=== PATIENT | female | born 1960 | race Caucasian/White ===

== ENCOUNTER 2021-04-28 17:42 | Emergency (ER) | payer MEDICARE, MEDICAID, SELFPAY ==
[2021-04-28 17:56] VITALS: BP 125/63; PULSE 73; RESP 17; TEMP 36.3; O2SAT 98; BMI 26.6
--- NOTE | 2021-04-28 18:53 | ECG_ITS ---
[facility] Test Date: 2021-04-28 Pat Name: Milagros Wells Department: Room: Gender: Female Division Manager: : 1960 Requested By: Albert Valdez Order Number: [id number] Samir MD: Evie Babin M.D. Measurements Intervals [place] Rate: 64 P: 29 MI: 218 QRS: 33 QRSD: 82 T: 58 QT: 388 QTc: 401 Interpretive Statements SINUS RHYTHM WITH FIRST DEGREE AV BLOCK No previous ECG available for comparison Electronically Signed On 04-29-2021 20:01:50 BOWLING ALLEY REFINISHER by Evie Babin M.D. [id number]
--- NOTE | 2021-04-28 18:53 | ED_ITS ---
HPI - Chest Pain General: Chief Complaint: Chest Pain Stated Complaint: CHEST PAIN Time Seen by Provider: 04/28/21 18:13 History of Present Illness: HPI narrative: 60-year-old female residential facility patient presenting with chest discomfort. She states that it started earlier in the afternoon while watching TV on the couch. She denies significant shortness of breath, cough, fever or leg swelling. She notes the pain comes and goes to some degree. She has diabetes. She has no other cardiac history. MD complaint: chest pain Pertinent past history: other Onset (ago): hour(s) Timing of current episode: episodic Onset: during rest Pain location: substernal Pain radiation: none Quality: aching Relieving factors: nothing Exacerbating factors: nothing Associated symptoms: Deny abdominal pain, diaphoresis, dyspnea, fever(s), leg edema, nausea, palpitations or vomiting Review of Systems Const: Denies: fever(s) or diaphoresis Eyes: Denies: change in vision Card: Reports: chest pain; Denies: palpitations or irregular heart rhythm Resp: Denies: dyspnea GI: Denies: abdominal pain, nausea or vomiting Physical Exam Const: COMMON NORMALS: no acute distress GENERAL APPEARANCE: cooperative and comfortable; not ill appearing Eye: COMMON NORMALS: Equal, round and reactive pupils present and EOMs intact bilaterally PUPIL: Yes Equal, round and reactive pupils present Chest: COMMONS NORMALS: normal inspection of the chest Resp: COMMON NORMALS: normal respiratory effort, No use of accessory muscles and clear to auscultation bilaterally AUSCULTATION: clear to auscultation bilaterally Cardio: COMMON NORMALS: regular rate and regular rhythm RATE: regular rate RHYTHM: regular rhythm GI: COMMON NORMALS: Normal to inspection, nondistended, normoactive bowel sounds present and Soft to palpation PALPATION: Yes Soft to palpation Course Vital Signs: Vital signs: Vital Signs Temperature 98.0 F 04/28/21 21:06 Pulse Rate 89 04/28/21 21:31 Respiratory Rate 18 04/28/21 21:31 Blood Pressure 134/78 04/28/21 21:31 Pulse Oximetry 98 04/28/21 21:31 MDM - Chest Pain MDM Narrative: Medical decision making narrative: EKG shows a sinus rhythm with a [place] interval of 0.22 giving rise to a minimal first-degree AV block. No acute ST changes. Rate is 65, normal axis. Troponin is 6 and stayed 6 at 2 hours. CBC is normal. Sodium is mildly low at 131. Creatinine 0.4. Chest x- ray is negative.She will be allowed home Lab Data: Labs: Lab Results 04/28/21 04/28/21 04/28/21 17:30 17:30 17:30 WBC 6.7 10^3/uL 10^3/ uL (4.0-10.0) RBC 4.20 10^6/uL 10^6 /uL (4.1-5.3) Hgb 13.4 g/dL g/dL (11.5-15.3) Hct 38.6 % % (37.0-47.0) MCV 91.9 fl fl (81-99) MCH 31.9 pg pg (28.0-34.0) MCHC 34.7 g/dL g/dL (30.0-36.0) RDW 13.0 % % (12.1-15.1) Plt Count 261 10^3/cmm 10^3 /cmm (130-400) MPV 9.4 fL fL (7.4-10.4) Neut % (Auto) 48.2 % % Lymph % (Auto) 35.5 % % [place] % (Auto) 10.8 % % Eos % (Auto) 3.8 % % Baso % (Auto) 0.9 % % Neut # (Auto) 3.21 10^3/uL 10^3 /uL (1.8-7.7) Lymph # (Auto) 2.4 10^3/uL 10^3/ uL (0.8-4.8) [place] # (Auto) 0.7 10^3/uL 10^3/ uL (0.2-0.9) Eos # (Auto) 0.3 10^3/uL 10^3/ uL (0.0-0.8) Baso # (Auto) 0.1 10^3/uL 10^3/ uL (0.0-0.1) Nucleated RBC % (a uto) 0 % % Nucleated RBCs # 0.0 /100WBC /100W BC Sodium 131 mmol/L L mmol /L (136-145) Potassium 4.2 mmol/L mmol/L (3.5-5.1) Chloride 92 mmol/L L mmol/ L (98-107) Carbon Dioxide 25 mmol/L mmol/L (22-29) Anion Gap 18.2 (5-19) BUN 11 mg/dL mg/dL (8-23) Creatinine 0.4 mg/dL L mg/dL (0.5-0.9) GFR Calculation 161.7 mL/min H mL /min (90-130) Glucose 125 mg/dL H mg/dL (65-115) Calculated Osmolal ity 273 mOsm/kg L mOs m/kg (285-295) Calcium 9.7 mg/dL mg/dL (8.5-10.5) Total Bilirubin 0.2 mg/dL mg/dL (0.15-1.2) AST 9 U/L U/L (0-32) ALT 12 U/L U/L (0-33) Alkaline Phosphata se 94 IU/L IU/L (35-105) Creatine Kinase 33 U/L U/L (26-192) Troponin T Baselin e 6 ng/L ng/L (0-10) Troponin T 120 Min [place] Troponin T NT-Pro-B Natriuret Pep 66 pg/mL pg/mL (0-125) Total Protein 6.5 g/dL L g/dL (6.6-8.7) Albumin 4.3 g/dL g/dL (3.5-5.2) Globulin 2.2 g/dL g/dL (1.3-4.6) 04/28/21 19:34 WBC RBC Hgb Hct MCV MCH MCHC RDW Plt Count MPV Neut % (Auto) Lymph % (Auto) [place] % (Auto) Eos % (Auto) Baso % (Auto) Neut # (Auto) Lymph # (Auto) [place] # (Auto) Eos # (Auto) Baso # (Auto) Nucleated RBC % (a uto) Nucleated RBCs # Sodium Potassium Chloride Carbon Dioxide Anion Gap BUN Creatinine GFR Calculation Glucose Calculated Osmolal ity Calcium Total Bilirubin AST ALT Alkaline Phosphata se Creatine Kinase Troponin T Baselin e Troponin T 120 Min [place] 6.00 ng/L ng/L (0-10) Delta Troponin T 0 ABS# ABS# (0-10) NT-Pro-B Natriuret Pep Total Protein Albumin Globulin Discharge Plan Discharge Patient Disposition: Home Clinical Impression: Chest pain Qualifiers: Chest pain type: unspecified Qualified Code(s): R07.9 - Chest pain, unspecified Condition: Stable Discharge Orders: Discharge ED (Routine); Ordered 04/28/21 Ordered By: Albert Winkler Discharge Diet: Advance as tolerated Discharge Activity: Increase activity as tolerated Patient Instructions: Chest Pain (ED) Activity Restrictions/Additional Instructions: Return for worsening chest pain, fever greater than 100, shortness of breath, any other concerning symptoms Coding Level of Care Code ED Employee Benefits Administrator for Nicole Fwd Exam Detailed
--- NOTE | 2021-04-28 18:55 | XRR_ITS ---
PROCEDURE INFORMATION: Exam: XR Chest Exam date and time: 04/28/2021 6:55 PM Age: 60 years old Clinical indication: Pain; Chest pressure; Prior surgery; Surgery date: 6+ months; Additional info: Cp TECHNIQUE: Imaging protocol: XR of the chest. Views: 1 view. COMPARISON: No relevant prior studies available. FINDINGS: Lungs: Unremarkable. No consolidation. Pleural spaces: Unremarkable. No pleural effusion. No pneumothorax. Heart/Mediastinum: Unremarkable. No cardiomegaly. Bones/joints: Visualized osseous structures are intact. XR/XR chest 1V [id number] IMPRESSION: No acute findings.
[2021-04-28 19:06] LABS: Basophils # 0.1 10^3/uL (0.0-0.1); Basophils % 0.9 %; Eosinophils # 0.3 10^3/uL (0.0-0.8); Eosinophils % 3.8 %; Hematocrit 38.6 % (37.0-47.0); Hemoglobin 13.4 g/dL (11.5-15.3); Lymphocytes # 2.4 10^3/uL (0.8-4.8); Lymphocytes % 35.5 %; Mean Corpuscular HGB Conc 34.7 g/dL (30.0-36.0); Mean Corpuscular Hemoglobin 31.9 pg (28.0-34.0); Mean Corpuscular Volume 91.9 fl (81-99); Mean Platelet Volume 9.4 fL (7.4-10.4); Monocytes # 0.7 10^3/uL (0.2-0.9); Monocytes % 10.8 %; Neutrophils # 3.21 10^3/uL (1.8-7.7); Neutrophils % 48.2 %; Nucleated Red Blood Cells % 0 %; Platelet Count 261 10^3/cmm (130-400); White Blood Count 6.7 10^3/uL (4.0-10.0)
[2021-04-28 19:32] LABS: Troponin(5th) Baseline 6 ng/L (0-10)
[2021-04-28 19:42] LABS: Alanine Aminotransferase 12 U/L (0-33); Albumin Level 4.3 g/dL (3.5-5.2); Alkaline Phosphatase 94 IU/L (35-105); Anion Gap 18.2 (5-19); Aspartate Amino Transferase 9 U/L (0-32); Blood Urea Nitrogen 11 mg/dL (8-23); Calcium 9.7 mg/dL (8.5-10.5); Carbon Dioxide 25 mmol/L (22-29); Chloride 92 mmol/L (98-107); Creatine Phosphokinase 33 U/L (26-192); Globulin 2.2 g/dL (1.3-4.6); Glomerular Filtration Rate 161.7 mL/min (90-130); Glucose 125 mg/dL (65-115); NT Pro B Type Natriuretic Pept 66 pg/mL (0-125); Osmolality Calculated 273 mOsm/kg (285-295); Potassium 4.2 mmol/L (3.5-5.1); Sodium 131 mmol/L (136-145); Total Bilirubin 0.2 mg/dL (0.15-1.2); Total Protein 6.5 g/dL (6.6-8.7)
[2021-04-28 20:06] LABS: Troponin 5 2HR Delta 0 ABS# (0-10)
[2021-04-28] MEDS: aspirin 325 mg Tablet PO (20:10)
[2021-04-28] MEDS: ondansetron 2 mg/ML SDV 2 mL 4 MG IVP (20:11)
[2021-04-28 20:13] VITALS: RESP 18; O2SAT 98
[2021-04-28] MEDS: morphine 4 mg/mL SDV 1 mL 2 MG IVP (20:13)
[2021-04-28 21:05] VITALS: BP 146/88; PULSE 80; RESP 16; TEMP 36.7
[2021-04-28 21:06] VITALS: BP 134/78; PULSE 89; RESP 18; TEMP 36.7; O2SAT 98
[2021-04-28 21:31] VITALS: BP 134/78; PULSE 89; RESP 18; O2SAT 98
== END 2021-04-28 21:06 | disposition home or self-care (01) ==
PROVIDERS: Emergency Provider Emergency Medicine
DX: R07.9 Chest pain, unspecified (principal)
CPT/HCPCS: 36415; 71045; 80053; 82550; 83880; 84484; 85025; 93005; 96374; 96375; 99284; J2270; J2405

== ENCOUNTER 2021-08-11 14:43 | Emergency (ER) | payer MEDICARE, MEDICAID, SELFPAY ==
--- NOTE | 2021-08-11 14:52 | CTR_ITS ---
PROCEDURE INFORMATION: Exam: CT Head Without Contrast Exam date and time: 08/11/2021 3:40 PM Age: 61 years old Clinical indication: Pain; Dizziness; Headache; Additional info: Closed head injury TECHNIQUE: Imaging protocol: Computed tomography of the head without contrast. Radiation optimization: All CT scans at this facility use at least one of these dose optimization techniques: automated exposure control; mA and/or kV adjustment per patient size (includes targeted exams where dose is matched to clinical indication); or iterative reconstruction. COMPARISON: No relevant prior studies available. RADIATION DOSE METRICS: Total DLP (mGy-cm): 774.69 FINDINGS: Brain: Punctate bilateral chronic basal ganglia calcifications. Chronic left basal ganglia lacunar infarct. Cerebral ventricles: No ventriculomegaly. Paranasal sinuses: Visualized sinuses are unremarkable. No fluid levels. Mastoid air cells: Visualized mastoid air cells are well aerated. Bones/joints: Unremarkable. No acute fracture. Soft tissues: Unremarkable. CT/CT head wo con* [id number] IMPRESSION: Negative for intracranial hemorrhage or mass effect
[2021-08-11 14:55] VITALS: BP 189/97; PULSE 77; RESP 22; TEMP 36.7; O2SAT 95; BMI 36.6
--- NOTE | 2021-08-11 14:57 | XRR_ITS ---
PROCEDURE INFORMATION: Exam: XR Right Knee Exam date and time: 08/11/2021 3:12 PM Age: 61 years old Clinical indication: Injury or trauma; Fall; Blunt trauma; Knee; Right TECHNIQUE: Imaging protocol: XR Right knee. Views: 3 views. COMPARISON: No relevant prior studies available. FINDINGS: Bones/joints: Moderate to severe tricompartmental osteoarthritis of the knee. Soft tissues: Normal. XR/XR knee RT 3V* [id number] IMPRESSION: 1. Negative for fracture or dislocation. 2. Moderate to severe tricompartmental osteoarthritis of the knee.
--- NOTE | 2021-08-11 14:57 | XRR_ITS ---
PROCEDURE INFORMATION: Exam: XR Left Knee Exam date and time: 08/11/2021 3:14 PM Age: 61 years old Clinical indication: Injury or trauma; Fall; Blunt trauma; Knee; Left TECHNIQUE: Imaging protocol: XR Left knee. Views: 3 views. COMPARISON: No relevant prior studies available. FINDINGS: Bones/joints: Severe tricompartmental osteoarthritis of the knee. Soft tissues: Normal. Other findings: 19 mm suspected calcific loose body in the suprapatellar region. XR/XR knee LT 3V* [id number] IMPRESSION: 1. Negative for fracture or dislocation. 2. Severe tricompartmental osteoarthritis of the knee. 3. 19 mm suspected calcific loose body in the suprapatellar region.
--- NOTE | 2021-08-11 14:58 | W.ED.FALL ---
HPI - Fall General: Chief Complaint: Headache Stated Complaint: FOREHEAD PAIN S/P FALL Time Seen by Provider: 08/11/21 14:45 Source: patient Mode of arrival: ambulatory Limitations: no limitations History of Present Illness: 61-year-old female who is a resident of a [facility] locally. She tripped and fell landed on her knees states she hit her head some attendants from [facility] helped her up she states she thought she had lost consciousness. There is been no vomiting since then she still does have a headache. She denies any difficulty with speech or swallowing. She is also complaining of pain bilaterally in the knee she has a small abrasion on her right knee complaint: fall Onset (ago): minute(s) Fall from: standing Fall witnessed: yes, by living facility staff Place fall occurred: fdc/SNF Loss of consciousness: Yes Prolonged down time: no Symptoms prior to fall: none Context: tripped/slipped Location of injury: head Location of injury - extremities: Bilateral: knee Severity: mild Quality: aching Associated symptoms-after fall: Denies abdominal pain, chest pain, confusion, difficulty walking, headache(s), hematuria, lightheadedness, neck pain, numbness, short of breath, vertigo or weakness Review of Systems Const: Denies: fever(s), chills, body aches, change in appetite, fatigue or malaise ENMT: Denies: throat pain, ear or mastoid pain, nasal discharge or nasal congestion Card: Denies: chest pain or lightheadedness Resp: Denies: dyspnea, productive cough or non-productive cough GI: Denies: abdominal pain : Denies: hematuria Musc: Denies: neck pain Skin/Breast: Denies: rash or pruritus Neuro: Denies: headache(s), difficulty walking, vertigo or confusion PFSH ED PFSH: Medical History (Updated 08/11/21 @ 15:56 by Jad Del Toro DO) Mental handicap Social History (Updated 08/11/21 @ 15:00 by Jad Del Toro DO) Smoking and tobacco status: never smoked Alcohol intake: never Physical Exam Const: GENERAL APPEARANCE: cooperative and comfortable ORIENTATION/CONSCIOUSNESS: Yes awake HENMT: COMMON NORMALS: normocephalic, atraumatic and hearing grossly normal bilaterally HEAD & SCALP: normocephalic and atraumatic Eye: COMMON NORMALS: Equal, round and reactive pupils present, EOMs intact bilaterally, conjunctivae normal and no scleral icterus CONJUNCTIVA: Yes conjunctivae normal PUPIL: Yes Equal, round and reactive pupils present Neck/C-Spine: COMMON NORMALS: no JVD Resp: COMMON NORMALS: normal respiratory effort, No retractions, No use of accessory muscles and clear to auscultation bilaterally AUSCULTATION: clear to auscultation bilaterally Cardio: COMMON NORMALS: no JVD, regular rate, regular rhythm and No murmurs present (Cardio) RATE: regular rate RHYTHM: regular rhythm GI: COMMON NORMALS: Soft to palpation and No hepatosplenomegaly present AUSCULTATION: Yes normoactive bowel sounds PALPATION: Yes Soft to palpation, No Tenderness to palpation present (GI), No Guarding due to palpation present (GI) and Yes No hepatosplenomegaly present Extremity: COMMON NORMALS: normal to inspection, capillary refill normal, no clubbing, cyanosis or edema, no calf tenderness and no pedal edema Skin: COMMON NORMALS: no rashes or lesions noted GENERAL SKIN EXAM: no rashes or lesions noted OTHER: Abrasion on the right knee inferior to the patella superficial Course Vital Signs: Vital signs: Vital Signs Temperature 98.1 F 08/11/21 14:55 Pulse Rate 73 08/11/21 15:57 Respiratory Rate 21 H 08/11/21 15:57 Blood Pressure 152/91 08/11/21 15:57 Pulse Oximetry 93 08/11/21 15:57 MDM - Fall Medical Decision Making CT and x-rays reviewed no acute fractures CT of the head negative for acute pathology. Discharge the patient home tetanus is updated follow-up as needed Medical Records I reviewed the patient's medical records. Lab Data Radiology Impressions Head CT 08/11/21 14:52 IMPRESSION: Negative for intracranial hemorrhage or mass effect Knee X-Ray 08/11/21 14:57 IMPRESSION: 1. Negative for fracture or dislocation. 2. Severe tricompartmental osteoarthritis of the knee. 3. 19 mm suspected calcific loose body in the suprapatellar region. Discharge Plan Discharge Patient Disposition: Home Clinical Impression: Fall, Closed head injury Discharge Orders: Discharge ED (Routine); Ordered 08/11/21 Ordered By: Jad Del Toro Discharge Diet: Usual diet Discharge Activity: Resume usual activity Patient Instructions: Opioid Safety Coding Level of Care Code ED Civil Preparedness Coordinator for Nicole Fwd Exam Comprehensive
[2021-08-11 15:31] VITALS: BP 159/83; PULSE 73; RESP 18; O2SAT 94
[2021-08-11 15:57] VITALS: BP 152/91; PULSE 73; RESP 21; O2SAT 93
[2021-08-11] MEDS: tetanus-dipt-pertussis 0.5 mL SDV IM (16:00)
[2021-08-11] MEDS: acetaminophen 500 mg Tablet 1000 MG PO (16:00)
--- NOTE | 2021-08-11 16:14 | PC.NURSE ---
Calling for patient ride at this time.
--- NOTE | 2021-08-11 16:14 | PC.NURSE ---
Report given to Margaret Figueroa
[2021-08-11 16:36] VITALS: BP 157/81; PULSE 71; RESP 15; O2SAT 93
--- NOTE | 2021-08-11 17:23 | PC.NURSE ---
Patient in chair, waiting for ride. Ride will be on way, notified patient of this plan.
== END 2021-08-11 17:37 | disposition home or self-care (01) ==
PROVIDERS: Emergency Provider Family Medicine
DX: S09.90XA Unspecified injury of head, initial encounter (principal); W01.0XXA Fall on same level from slipping, tripping and stumbling without subsequent striking against object, initial encounter; Z23 Encounter for immunization; M25.562 Pain in left knee; M25.561 Pain in right knee
CPT/HCPCS: 70450; 73562; 90471; 90715; 99283

== ENCOUNTER 2021-08-24 14:14 | Outpatient (CLI) | payer MEDICARE, MEDICAID, SELFPAY ==
--- NOTE | 2021-08-24 14:21 | MM_ITS ---
WS: [id number] BILATERAL 3D TOMOSYNTHESIS DIGITAL SCREENING MAMMOGRAPHY WITH CAD CLINICAL INFORMATION: SCREENING HISTORY: Screening mammogram. No current complaints. COMPARISON: January 02, 2021 TECHNIQUE: Bilateral CC and MLO views. FINDINGS: Scattered fibroglandular densities bilaterally. Punctate and lucent centered calcifications. No suspi cious focal mass, asymmetry, calcifications, or architectural distortion. No evidence of malignancy. MM/[place] [id number] IMPRESSION: BI-RADS: 2-Benign FOLLOW UP: 1 Year Follow-up Recommend return to annual screening mammography.
== END 2021-08-24 14:15 | disposition home or self-care (01) ==
PROVIDERS: Visit Provider Family Medicine
DX: Z12.31 Encounter for screening mammogram for malignant neoplasm of breast (principal)
CPT/HCPCS: 77063; 77067

== ENCOUNTER 2022-08-26 15:05 | Outpatient (CLI) | payer MEDICARE, MEDICAID, SELFPAY ==
--- NOTE | 2022-08-26 15:12 | MM_ITS ---
WS: [id number] BILATERAL 3D TOMOSYNTHESIS DIGITAL SCREENING MAMMOGRAPHY WITH CAD CLINICAL INFORMATION: SCREENING HISTORY: Screening mammogram. No current complaints. COMPARISON: 2021 TECHNIQUE: Bilateral CC and MLO views. FINDINGS: Scattered fibroglandular densities bilaterally. No suspicious focal mass, asymmetry, calcifications, or architectural distortion. No evidence of malignancy. Punctate and lucent centered calcifications. MM/[place] [id number] IMPRESSION: BI-RADS: 2-Benign FOLLOW UP: 1 Year Follow-up Recommend return to annual screening mammography.
== END 2022-08-26 15:06 | disposition home or self-care (01) ==
PROVIDERS: PCP Family Medicine; Visit Provider Family Medicine
DX: Z12.31 Encounter for screening mammogram for malignant neoplasm of breast (principal)
CPT/HCPCS: 77063; 77067

== ENCOUNTER 2023-08-03 20:02 | Emergency (ER) | payer MEDICARE, MEDICAID, SELFPAY ==
[2023-08-03 20:02] VITALS: BP 120/69; PULSE 81; RESP 18; TEMP 36.7; O2SAT 98
--- NOTE | 2023-08-03 20:09 | XRR_ITS ---
PROCEDURE INFORMATION: Exam: XR Chest Exam date and time: 08/03/2023 8:24 PM Age: 63 years old Clinical indication: Angina pectoris; Patient HX: Chest pain TECHNIQUE: Imaging protocol: Radiologic exam of the chest. Views: 1 view. COMPARISON: CR XR chest 1V [id number] 04/28/2021 7:09 PM FINDINGS: Lungs: No focal consolidation. Pleural spaces: No evidence of pneumothorax. No evidence of pleural effusion. Heart/Mediastinum: Cardiomediastinal silhouette is within normal limits. Bones/joints: No evidence of acute osseous abnormality. Severe glenohumeral osteoarthritis on the right. Chronic fracture of the posterosuperior glenoid on the left. XR/XR chest 1V portable [id number] IMPRESSION: 1. No acute cardiopulmonary abnormality.
--- NOTE | 2023-08-03 20:09 | ECG_ITS ---
[facility] Test Date: 2023-08-03 Pat Name: Milagros Wells Department: Room: Gender: Female Shorthand Reporter: : 1960 Requested By: Albert Valdez Order Number: [id number] Samir MD: Evie Babin M.D. Measurements Intervals [place] Rate: 76 P: 78 [place]: 195 QRS: 59 QRSD: 90 T: 72 QT: 380 QTc: 430 Interpretive Statements SINUS RHYTHM Compared to ECG 04/28/2021 19:20:04 First degree AV block no longer present Electronically Signed On 08-03-2023 22:49:24 CDT by Evie Babin M.D. [email or web address].[email or web address]/store/[id number] f
[2023-08-03 20:23] VITALS: BP 120/73; PULSE 72; RESP 16; O2SAT 93
[2023-08-03 20:27] LABS: Basophils # 0.1 10^3/uL (0.0-0.1); Basophils % 0.8 %; Eosinophils # 0.2 10^3/uL (0.0-0.8); Eosinophils % 3.6 %; Hematocrit 37.7 % (36-47); Lymphocytes # 2.2 10^3/uL (0.8-4.8); Lymphocytes % 33.7 %; Mean Corpuscular HGB Conc 35.3 g/dL (30-55); Mean Corpuscular Volume 90.8 fl (85-98); Monocytes # 0.7 10^3/uL (0.2-0.9); Monocytes % 10.2 %; Neutrophils # 3.33 10^3/uL (1.8-7.7); Neutrophils % 50.5 %; Nucleated Red Blood Cells % 0 %; Platelet Count 275 10^3/cmm (157-399); Red Blood Count 4.15 10^6/uL (3.85-5.65); White Blood Count 6.59 10^3/uL (3.29-11.43)
[2023-08-03] MEDS: ondansetron 2 mg/ML SDV 2 mL 4 MG IVP (20:42)
[2023-08-03] MEDS: morphine 4 mg/mL SDV 1 mL 2 MG IVP (20:43)
[2023-08-03 20:44] LABS: Add Urine Microscopic? YES; Bacteria Urine TRACE /hpf; Bilirubin Urine Neg (Negative); Blood Urine Neg (Negative); Glucose Urine UA Norm (Normal); Ketones Urine Negative (Negative); Leukocyte Esterase Urine Trace (Negative); Nitrate Urine Negative (Negative); Protein Urine Neg (Negative); RBC Urine 0-4 /hpf (0-2); Specific Gravity, Urine 1.015 (1.005-1.030); Squamous Epithelial Cell Urine 0-4 /hpf (0-5); Urine Appearance Clear (CLEAR); Urine Color Yellow (Yellow); Urobilinogen Urine Neg (Negative); pH Urine 5 (5-7)
[2023-08-03] MEDS: lidocaine 2% viscous 15 ML, aluminum-mag hydrox-simethicon 30 ML, sucralfate oral liq 1 GM PO (20:44)
[2023-08-03 20:45] LABS: Troponin(5th) Baseline < 6 ng/L (0-10)
[2023-08-03 20:53] LABS: Alanine Aminotransferase 24 U/L (0-33); Albumin Level 4.4 g/dL (3.5-5.2); Alkaline Phosphatase 120 U/L (35-105); Blood Urea Nitrogen 14 mg/dL (8-23); Calcium 8.9 mg/dL (8.5-10.5); Carbon Dioxide 27 mmol/L (22-29); Chloride 95 mmol/L (98-107); Creatine Phosphokinase 47 U/L (26-192); Globulin 2.6 g/dL (1.3-4.6); Glomerular Filtration Rate 123.8 mL/min (90-130); Glucose 182 mg/dL (65-115); Lipase 12 U/L (13-60); NT Pro B Type Natriuretic Pept 44 pg/mL (0-125); Osmolality Calculated 287 mOsm/kg (285-295); Sodium 136 mmol/L (136-145); Total Bilirubin 0.2 mg/dL (0.15-1.2)
[2023-08-03 20:54] LABS: Aspartate Amino Transferase 17 U/L (0-32)
--- NOTE | 2023-08-03 20:58 | ED_ITS ---
HPI - Chest Pain 2 General: Chief Complaint: Chest Pain Stated Complaint: CP Time Seen by Provider: 08/03/23 20:08 History of Present Illness: 63-year-old female with no prior history of coronary disease. She presents with chest discomfort at home. She notes that started while at rest after eating. She tried to lay down, but pain worsened with lying down. She called an ambulance. She was given 2 nitroglycerin with no significant reduction in pain. She was also given aspirin en route. She presents with still in pain, mildly short of breath. She is mildly nauseated, but has not vomited. Associated symptoms: Deny abdominal pain, fever(s), palpitations or vomiting Review of Systems 2 Const: Denies: fever(s), chills or body aches Eyes: Denies: change in vision Card: Denies: palpitations Resp: Denies: productive cough, non-productive cough or wheezing GI: Denies: abdominal pain, vomiting, diarrhea or hematochezia : Denies: difficulty voiding Skin/Breast: Denies: rash Neuro: Denies: headache(s), weakness in extremities, dizziness or confusion PFSH ED 2 PFSH: Medical History Mental handicap Family History (Updated 07/30/22 @ 08:12 by Peggy Trinidad LPN) Denies family history of Colon cancer Ovarian cancer Diabetes Heart disease Hypercholesteremia Breast cancer Hypertension Uterine cancer Thyroid disease Stroke Physical Exam 2 Const: COMMON NORMALS: no acute distress GENERAL APPEARANCE: cooperative; not ill appearing and not frail appearing HENMT: COMMON NORMALS: normocephalic, atraumatic and Normal external nose present HEAD & SCALP: normocephalic and atraumatic FACE & SINUS: normal facial exam and face symmetric NOSE: Normal external nose present Eye: COMMON NORMALS: Equal, round and reactive pupils present and EOMs intact bilaterally PUPIL: Yes Equal, round and reactive pupils present Neck/C-Spine: GENERAL: Yes trachea midline Chest: CHEST: Yes Symmetrical chest wall rise Resp: COMMON NORMALS: normal respiratory effort, No retractions, No use of accessory muscles and clear to auscultation bilaterally AUSCULTATION: clear to auscultation bilaterally Cardio: COMMON NORMALS: regular rate and regular rhythm RATE: regular rate RHYTHM: regular rhythm GI: COMMON NORMALS: Normal to inspection, nondistended, normoactive bowel sounds present PALPATION: Yes Tenderness to palpation present (GI) (Epigastric) Details: RUQ Extremity: COMMON NORMALS: no pedal edema Neuro: JAMAAL COMA SCALE: document GCS findings Jamaal coma scale eye opening: Spontaneous Jamaal coma scale verbal response: Orientated [place] coma scale motor response: Obey commands Jamaal coma scale total score: 15 S ENSORY EXAM: Yes extremities (intact) Psych: COMMON NORMALS: speech normal SPEECH: Yes normal speech Skin: COMMON NORMALS: no rashes or lesions noted GENERAL SKIN EXAM: no rashes or lesions noted Course 2 Vital Signs: Vital signs: Vital Signs Temperature 98.0 F 08/03/23 21:27 Pulse Rate 72 08/03/23 21:27 Respiratory Rate 16 08/03/23 21:27 Blood Pressure 120/73 08/03/23 21:27 Pulse Oximetry 93 08/03/23 21:27 Oxygen Delivery Me thod Nasal Cannula 08/03/23 20:23 Oxygen Flow Rate 2 08/03/23 20:23 MDM - Chest Pain Medical Decision Making Vital signs are stable. EKG shows a sinus rhythm with a rate of 75, normal axis, normal intervals. No ST wave changes. CBC is normal. BMP is normal. Liver enzymes are normal. Lipase is 12. Urinalysis is not remarkable. She is tender in the epigastrium. She is given a small dose of morphine, Zofran, and GI cocktail with improvement. Her troponin is nondetectable. Lab Data 08/03/23 Unknown 08/03/23 Unknown Radiology Impressions Chest X-Ray 08/03/23 20:09 IMPRESSION: 1. No acute cardiopulmonary abnormality. Laboratory Results WBC 6.59 10^3/uL (3.29-11.43) 08/03/23 Unknown RBC 4.15 10^6/uL (3.85-5.65) 08/03/23 Unknown Hgb 13.30 g/dL (11.27-16.99) 08/03/23 Unknown Hct 37.7 % (36-47) 08/03/23 Unknown MCV 90.8 fl (85-98) 08/03/23 Unknown MCH 32.0 pg (27-33) 08/03/23 Unknown MCHC 35.3 g/dL (30-55) 08/03/23 Unknown RDW 13.0 % (12.1-15.1) 08/03/23 Unknown Plt Count 275 10^3/cmm (157-399) 08/03/23 Unknown MPV 9.0 fL (7.4-10.4) 08/03/23 Unknown Neut % (Auto) 50.5 % 08/03/23 Unknown Lymph % (Auto) 33.7 % 08/03/23 Unknown [place] % (Auto) 10.2 % 08/03/23 Unknown Eos % (Auto) 3.6 % 08/03/23 Unknown Baso % (Auto) 0.8 % 08/03/23 Unknown Neut # (Auto) 3.33 10^3/uL (1.8-7.7) 08/03/23 Unknown Lymph # (Auto) 2.2 10^3/uL (0.8-4.8) 08/03/23 Unknown [place] # (Auto) 0.7 10^3/uL (0.2-0.9) 08/03/23 Unknown Eos # (Auto) 0.2 10^3/uL (0.0-0.8) 08/03/23 Unknown Baso # (Auto) 0.1 10^3/uL (0.0-0.1) 08/03/23 Unknown Nucleated RBC % (auto) 0 % 08/03/23 Unknown Nucleated RBCs # 0.0 /100WBC 08/03/23 Unknown Sodium 136 mmol/L (136-145) 08/03/23 Unknown Potassium 4.0 mmol/L (3.5-5.1) 08/03/23 Unknown Chloride 95 mmol/L (98-107) L 08/03/23 Unknown Carbon Dioxide 27 mmol/L (22-29) 08/03/23 Unknown Anion Gap 18.0 (5-19) 08/03/23 Unknown BUN 14 mg/dL (8-23) 08/03/23 Unknown Creatinine 0.5 mg/dL (0.5-0.9) 08/03/23 Unknown GFR Calculation 123.8 mL/min (90-130) 08/03/23 Unknown Glucose 182 mg/dL (65-115) H 08/03/23 Unknown Calculated Osmolality 287 mOsm/kg (285-295) 08/03/23 Unknown Calcium 8.9 mg/dL (8.5-10.5) 08/03/23 Unknown Total Bilirubin 0.2 mg/dL (0.15-1.2) 08/03/23 Unknown AST 17 U/L (0-32) 08/03/23 Unknown ALT 24 U/L (0-33) 08/03/23 Unknown Alkaline Phosphatase 120 U/L (35-105) H 08/03/23 Unknown Creatine Kinase 47 U/L (26-192) 08/03/23 Unknown Troponin T Baseline < 6 ng/L (0-10) 08/03/23 Unknown NT-Pro-B Natriuret Pep 44 pg/mL (0-125) 08/03/23 Unknown Total Protein 7.0 g/dL (6.6-8.7) 08/03/23 Unknown Albumin 4.4 g/dL (3.5-5.2) 08/03/23 Unknown Globulin 2.6 g/dL (1.3-4.6) 08/03/23 Unknown Lipase 12 U/L (13-60) L 08/03/23 Unknown Urine Color Yellow (Yellow) 08/03/23 20:15 Urine Appearance Clear (CLEAR) 08/03/23 20:15 Urine pH 5 (5-7) 08/03/23 20:15 Ur Specific [place] 1.015 (1.005-1.030) 08/03/23 20:15 Urine Protein Neg (Negative) 08/03/23 20:15 Urine Glucose (UA) Norm (Normal) 08/03/23 20:15 Urine Ketones Negative (Negative) 08/03/23 20:15 Urine Blood Neg (Negative) 08/03/23 20:15 Urine Nitrate Negative (Negative) 08/03/23 20:15 Urine Bilirubin Neg (Negative) 08/03/23 20:15 Urine Urobilinogen Neg mg/dL (Negative) 08/03/23 20:15 Ur Leukocyte Esterase Trace (Negative) H 08/03/23 20:15 Urine RBC 0-4 /hpf (0-2) H 08/03/23 20:15 Urine WBC 5-10 /hpf (0-5) H 08/03/23 20:15 Ur Squamous Epith Cells 0-4 /hpf (0-5) H 08/03/23 20:15 Amorphous Sediment Not Reportable 08/03/23 20:15 Urine Bacteria Trace /hpf (NONE) 08/03/23 20:15 All radiology interpretation(s) finalized by discharge Discharge Plan Discharge Patient Disposition: Home Clinical Impression: Abdominal pain, acute, epigastric Condition: Stable Prescriptions: New Prevacid 30 mg capsule,delayed release(DR/EC) 30 mg PO DAILY Qty: 30 0RF Discharge Orders: Discharge ED (Routine); Ordered 08/03/23 Ordered By: Albert Winkler Referrals: Vasiliy Santiago Jr, MD [Primary Care Provider] - 1-3 days Patient Instructions: Abdominal Pain (ED), Opioid Safety, Pain Management Activity Restrictions/Additional Instructions: Return for worsening pain despite treatment, vomiting liquids or medications, fever, worsening shortness of breath, other concerning symptoms. Coding Level of Care Code ED Broommaking Supervisor for Nicole Coronel
[2023-08-03 21:27] VITALS: BP 120/73; PULSE 72; RESP 16; TEMP 36.7; O2SAT 93
== END 2023-08-03 21:29 | disposition home or self-care (01) ==
PROVIDERS: Emergency Provider Emergency Medicine; PCP Family Medicine
DX: R10.13 Epigastric pain (principal)
CPT/HCPCS: 71045; 80053; 81001; 82550; 83690; 83880; 84484; 85025; 93005; 96374; 96375; 99285; J2270; J2405

== ENCOUNTER 2023-09-19 13:58 | Outpatient (CLI) | payer MEDICARE, MEDICAID, SELFPAY ==
--- NOTE | 2023-09-19 14:04 | MM_ITS ---
WS: [id number] BILATERAL 3D TOMOSYNTHESIS DIGITAL SCREENING MAMMOGRAPHY WITH CAD CLINICAL INFORMATION: SCREENING HISTORY: Screening mammogram. No current complaints. Chronic nipple inversion. COMPARISON: 2022 TECHNIQUE: Bilateral CC and MLO views. FINDINGS: Scattered fibroglandular densities bilaterally. No suspicious focal mass, asymmetry, calcifications, or architectural distortion. No evidence of malignancy. A few incidental punctate calcifications. MM/[place] [id number] IMPRESSION: BI-RADS: 2-Benign FOLLOW UP: 1 Year Follow-up Recommend return to annual screening mammography.
== END 2023-09-19 13:59 | disposition home or self-care (01) ==
PROVIDERS: PCP Family Medicine; Visit Provider Family Medicine
DX: Z12.31 Encounter for screening mammogram for malignant neoplasm of breast (principal); R92.323 Mammographic fibroglandular density, bilateral breasts; R92.1 Mammographic calcification found on diagnostic imaging of breast
CPT/HCPCS: 77063; 77067

== ENCOUNTER 2024-02-11 19:30 | Emergency (ER) | payer MEDICARE, SELFPAY ==
[2024-02-11 19:33] VITALS: BP 181/73; PULSE 75; RESP 18; TEMP 36.7; O2SAT 96; BMI 39.9
--- NOTE | 2024-02-11 19:43 | CTR_ITS ---
PROCEDURE INFORMATION: Exam: CT Cervical Spine Without Contrast Exam date and time: 02/11/2024 8:36 PM Age: 63 years old Clinical indication: Injury or trauma; Fall; Other: Dizzy; Additional info: Fall/hit head/ dizzy TECHNIQUE: Imaging protocol: Computed tomography of the cervical spine without contrast. Radiation optimization: All CT scans at this facility use at least one of these dose optimization techniques: automated exposure control; mA and/or kV adjustment per patient size (includes targeted exams where dose is matched to clinical indication); or iterative reconstruction. COMPARISON: CT head wo con* [id number] 02/11/2024 8:32 PM RADIATION DOSE METRICS: Total DLP (mGy-cm): 294.17 FINDINGS: Bones: Reversal of the cervical lordosis. Moderate spondylosis. No acute fracture. No significant spinal canal stenosis. Severe left-sided C5-C6 neural foraminal stenosis. Remote fracture of the posterior right 3rd rib. Lungs: Lung apices are normal. Soft tissues: Unremarkable. CT/CT cervical spin wo con* [id number] IMPRESSION: No acute fracture or malalignment.
--- NOTE | 2024-02-11 19:43 | CTR_ITS ---
PROCEDURE INFORMATION: Exam: CT Head Without Contrast Exam date and time: 02/11/2024 8:32 PM Age: 63 years old Clinical indication: Injury or trauma; Fall; Other: Hit head, dizzy; Additional info: Fall/hit head/dizzy TECHNIQUE: Imaging protocol: Computed tomography of the head without contrast. Radiation optimization: All CT scans at this facility use at least one of these dose optimization techniques: automated exposure control; mA and/or kV adjustment per patient size (includes targeted exams where dose is matched to clinical indication); or iterative reconstruction. COMPARISON: CT head wo con* [id number] 08/11/2021 3:40 PM RADIATION DOSE METRICS: Total DLP (mGy-cm): 1052.34 FINDINGS: Brain: Normal. No hemorrhage. Unremarkable white matter. No mass effect. Cerebral ventricles: No ventriculomegaly. Paranasal sinuses: Visualized sinuses are unremarkable. No fluid levels. Mastoid air cells: Visualized mastoid air cells are well aerated. Bones: Unremarkable. No acute fracture. Soft tissues: Unremarkable. CT/CT head wo con* [id number] IMPRESSION: No acute intracranial abnormality.
--- NOTE | 2024-02-11 19:44 | ECG_ITS ---
[facility] Test Date: 2024-02-11 Pat Name: Milagros Wells Department: Room: Gender: Female Sales Development Executive: : 1960 Requested By: Elton Pineda Order Number: [id number] Samir MD: Evie Babin M.D. Measurements Intervals [place] Rate: 71 P: 39 [place]: 204 QRS: 38 QRSD: 86 T: 69 QT: 373 QTc: 406 Interpretive Statements SINUS RHYTHM POSSIBLE RIGHT VENTRICULAR CONDUCTION DELAY [RSR (QR) IN V1/V2] NONSPECIFIC T-WAVE ABNORMALITY Compared to ECG 08/03/2023 20:09:53 T-wave abnormality now present Electronically Signed On 02-12-2024 21:34:02 FUR GRADER by Evie Babin M.D. [id number]
--- NOTE | 2024-02-11 19:55 | ED_ITS ---
HPI - Fall 2 General: Chief Complaint: Fall Stated Complaint: fall Time Seen by Provider: 02/11/24 19:34 Source: patient Mode of arrival: EMS Limitations: no limitations History of Present Illness: Patient is a 63-year-old female who comes to the emergency department by ambulance due to a fall at [facility]. Fall occurred at [facility] where patient reportedly got dizzy prior to falling, though patient comes to me that she thinks she tripped over her legs. From chart she was transferred back to her assisted living facility, but from there EMS was called for further evaluation in the emergency department. Patient is still complaining of dizziness as well as pain to her lip where there is an obvious hematoma. She denies any cardiac history, and denies any chest pain, shortness of breath, or other symptoms before falling other than feeling dizzy. She is currently alert and oriented x 4 and is not demonstrating any focal neurological deficit. Reportedly she is also at baseline mentation from [facility] staff. She is not reporting any pain in her extremities, has been ambulatory since the incident. This fall that occurred a few hours prior to arrival. MD complaint: fall Onset (ago): hour(s) Fall from: standing Fall witnessed: yes, by bystander Place fall occurred: other ([facility]) Loss of consciousness: None Prolonged down time: no Symptoms prior to fall: dizziness Context: tripped/slipped Location of injury: face Associated symptoms-after fall: Denies abdominal pain, chest pain, headache(s), lightheadedness or neck pain Related Data Previous Rx's Medication Instructions Recorded lansoprazole 30 mg capsule,delayed 30 mg PO DAILY #30 caps 08/03/23 release (Prevacid) Allergies Allergy/AdvReac Type Severity Reaction Status Date / Time No Known Allergies Allergy Verified 02/11/24 19:41 Review of Systems 2 General: Reports: 10 or more systems reviewed and unremarkable except in HPI and below Const: Reports: other (Fall); Denies: fever(s), chills or fatigue Eyes: Denies: change in vision ENMT: Reports: sinus pain; Denies: throat pain, ear or mastoid pain or nasal discharge Card: Denies: chest pain, palpitations, swelling of feet/ankles or lightheadedness Resp: Denies: dyspnea, productive cough or wheezing GI: Denies: abdominal pain, nausea, vomiting, diarrhea or constipation : Denies: flank pain, difficulty voiding, dysuria or urinary frequency Musc: Denies: neck pain, back pain or joint pain Skin/Breast: Denies: rash Neuro: Reports: dizziness; Denies: headache(s), numbness in extremities or weakness in extremities PFSH ED 2 PFSH: Medical History Mental handicap Family History Denies family history of Colon cancer Ovarian cancer Diabetes Heart disease Hypercholesteremia Breast cancer Hypertension Uterine cancer Thyroid disease Stroke Physical Exam 2 Const: COMMON NORMALS: no acute distress, patient oriented x3 and no limitations GENERAL APPEARANCE: cooperative, comfortable and well developed ORIENTATION/CONSCIOUSNESS: Yes awake, Yes oriented to person, Yes oriented to place and Yes oriented to time HENMT: COMMON NORMALS: normocephalic, atraumatic and hearing grossly normal bilaterally HEAD & SCALP: normocephalic and atraumatic OTHER: Hematoma to patient's lower lip. No other signs of head trauma, no raccoon eyes, no [place] sign Eye: COMMON NORMALS: Equal, round and reactive pupils present, EOMs intact bilaterally and conjunctivae normal CONJUNCTIVA: Yes conjunctivae normal P UPIL: Yes Equal, round and reactive pupils present OTHER: Eyes track midline Neck/C-Spine: COMMON NORMALS: full ROM, supple and no JVD Chest: COMMONS NORMALS: normal inspection of the chest and normal palpation of entire chest wall Resp: COMMON NORMALS: normal respiratory effort, No retractions, No use of accessory muscles and clear to auscultation bilaterally AUSCULTATION: clear to auscultation bilaterally Cardio: COMMON NORMALS: no JVD, regular rate, regular rhythm, No clicks present (Cardio), No murmurs present (Cardio) and No rub (Cardio) RATE: r egular rate RHYTHM: regular rhythm GI: COMMON NORMALS: Normal to inspection, nondistended, normoactive bowel sounds present, Soft to palpation and non-tender AUSCULTATION: Yes normoactive bowel sounds PALPATION: Yes Soft to palpation RECTAL EXAM: d eferred Back/Pelvis: COMMON NORMALS: thoracic and lumbar spine normal to inspection, no thoracic nor lumbar tenderness and thoraco-lumbar ROM normal Extremity: COMMON NORMALS: normal to inspection, full ROM and capillary refill normal NARRATIVE EXTREMITY EXAM: All patient's joints and extremities palpated and nontender, with no signs of trauma or deformity Neuro: COMMON NORMALS: patient oriented x3, CN's II-XII intact bilaterally, moves all extremities, no focal motor deficits and no sensory deficits noted SENSORIUM/ORIENTATION: Yes oriented to person, Yes oriented to place and Yes oriented to time Psych: COMMON NORMALS: mental status grossly normal and Normal thought process present THOUGHT PROCESS: Normal thought process present Skin: COMMON NORMALS: no rashes or lesions noted GENERAL SKIN EXAM: no rashes or lesions noted Course 2 Vital Signs: Vital signs: Vital Signs Temperature 98.0 F 02/11/24 19:33 Pulse Rate 72 02/11/24 20:10 Respiratory Rate 19 H 02/11/24 20:07 Blood Pressure 175/83 02/11/24 20:10 Pulse Oximetry 94 02/11/24 20:07 Oxygen Delivery Me thod Room Air 02/11/24 20:07 MDM - Fall Medical Decision Making Patient presented by ambulance for a fall while at [facility], she was transferred back to her living facility but from their ambulance was called. No neurological deficits noted on exam, did have a hematoma to her bottom lip evident from striking her face on the ground. She is not on blood thinner. CT head and neck were normal. Lab work normal including negative troponin and rest of her cardiac workup here in the emergency department normal. EKG reviewed with physician showing normal sinus rhythm rate of 71 no abnormalities. Orthostatic vital signs were nondiagnostic, unknown ultimately what caused her fall though she was ultimately poor given history and she was stating that she may have just tripped over her own feet. However she is still encouraged to follow-up with primary care for further outpatient workup, and apply ice to her lip. Reasons to return were discussed. She will be transferred back to [facility] at this time. Lab Data 02/11/24 20:07 02/11/24 20:07 Radiology Impressions Cervical Spine CT 02/11/24 19:43 IMPRESSION: No acute fracture or malalignment. Head CT 02/11/24 19:43 IMPRESSION: No acute intracranial abnormality. Laboratory Results WBC 7.34 10^3/uL (3.29-11.43) 02/11/24 20:07 RBC 4.18 10^6/uL (3.85-5.65) 02/11/24 20:07 Hgb 13.60 g/dL (11.27-16.99) 02/11/24 20:07 Hct 38.2 % (36-47) 02/11/24 20:07 MCV 91.4 fl (85-98) 02/11/24 20:07 MCH 32.5 pg (27-33) 02/11/24 20:07 MCHC 35.6 g/dL (30-55) 02/11/24 20:07 RDW 13.2 % (12.1-15.1) 02/11/24 20:07 Plt Count 253 10^3/cmm (157-399) 02/11/24 20:07 MPV 8.7 fL (7.4-10.4) 02/11/24 20:07 Neut % (Auto) 62.6 % 02/11/24 20:07 Lymph % (Auto) 22.2 % 02/11/24 20:07 [place] % (Auto) 10.4 % 02/11/24 20:07 Eos % (Auto) 3.8 % 02/11/24 20:07 Baso % (Auto) 0.5 % 02/11/24 20:07 Neut # (Auto) 4.59 10^3/uL (1.8-7.7) 02/11/24 20:07 Lymph # (Auto) 1.6 10^3/uL (0.8-4.8) 02/11/24 20:07 [place] # (Auto) 0.8 10^3/uL (0.2-0.9) 02/11/24 20:07 Eos # (Auto) 0.3 10^3/uL (0.0-0.8) 02/11/24 20:07 Baso # (Auto) 0.0 10^3/uL (0.0-0.1) 02/11/24 20:07 Nucleated RBC % (auto) 0 % 02/11/24 20:07 Nucleated RBCs # 0.0 /100WBC 02/11/24 20:07 Sodium 135 mmol/L (136-145) L 02/11/24 20:07 Potassium 3.7 mmol/L (3.5-5.1) 02/11/24 20:07 Chloride 96 mmol/L (98-107) L 02/11/24 20:07 Carbon Dioxide 29 mmol/L (22-29) 02/11/24 20:07 Anion Gap 13.7 (5-19) 02/11/24 20:07 BUN 10 mg/dL (8-23) 02/11/24 20:07 Creatinine 0.5 mg/dL (0.5-0.9) 02/11/24 20:07 GFR Calculation 123.8 mL/min (90-130) 02/11/24 20:07 Glucose 253 mg/dL (65-115) H 02/11/24 20:07 Calculated Osmolality 288 mOsm/kg (285-295) 02/11/24 20:07 Calcium 9.5 mg/dL (8.5-10.5) 02/11/24 20:07 Total Bilirubin 0.3 mg/dL (0.15-1.2) 02/11/24 20:07 AST 10 U/L (0-32) 02/11/24 20:07 ALT 22 U/L (0-33) 02/11/24 20:07 Alkaline Phosphatase 109 U/L (35-105) H 02/11/24 20:07 Troponin T Baseline < 6 ng/L (0-10) 02/11/24 20:07 Total Protein 6.0 g/dL (6.6-8.7) L 02/11/24 20:07 Albumin 4.5 g/dL (3.5-5.2) 02/11/24 20:07 Globulin 1.5 g/dL (1.3-4.6) 02/11/24 20:07 Urine Color Dark yellow (Yellow) A 02/11/24 20:10 Urine Appearance Cloudy (CLEAR) A 02/11/24 20:10 Urine pH 5.0 (5-7) 02/11/24 20:10 Ur Specific [place] 1.022 (1.005-1.030) 02/11/24 20:10 Urine Protein 1+ (Negative) A 02/11/24 20:10 Urine Glucose (UA) 2+ (Normal) H 02/11/24 20:10 Urine Ketones Trace (Negative) 02/11/24 20:10 Urine Blood Negative (Negative) 02/11/24 20:10 Urine Nitrate Negative (Negative) 02/11/24 20:10 Urine Bilirubin Negative (Negative) 02/11/24 20:10 Urine Urobilinogen 1.0 mg/dL (Negative) 02/11/24 20:10 Ur Leukocyte Esterase 2+ (Negative) A 02/11/24 20:10 Urine RBC 3-5 /hpf (0-2) 02/11/24 20:10 Urine WBC 21-50 /hpf (0-5) H 02/11/24 20:10 Ur Squamous Epith Cells 0-5 /hpf (0-5) 02/11/24 20:10 Amorphous Sediment Not Reportable 02/11/24 20:10 Urine Bacteria Trace /hpf (NONE) 02/11/24 20:10 Hyaline Casts 36.80 /lpf 02/11/24 20:10 All radiology interpretation(s) finalized by discharge Discharge Plan Discharge Patient Disposition: Home Clinical Impression: Hematoma of intraoral surface of lip Fall Qualifiers: Encounter type: initial encounter Qualified Code(s): W19.XXXA - Unspecified fall, initial encounter Condition: Stable Prescriptions: No Action Prevacid 30 mg capsule,delayed release(DR/EC) 30 mg PO DAILY Qty: 30 0RF Discharge Orders: Discharge ED (Routine); Ordered 02/11/24 Ordered By: Elton Davis Referrals: Vasiliy Santiago Jr, MD [Primary Care Provider] - Patient Instructions: Fall Prevention (ED) Activity Restrictions/Additional Instructions: Please follow-up with your primary care provider, continue taking home medications. Return with any new or concerning symptoms. Ice to your lower lip. Coding Level of Care Code ED Creative Designer for Nicole Coronel
[2024-02-11 20:07] VITALS: BP 183/86; PULSE 74; RESP 19; O2SAT 94
[2024-02-11 20:10] VITALS: BP 163/81; BP 169/88; BP 175/83; PULSE 72; PULSE 73
[2024-02-11 20:15] LABS: Basophils % 0.5 %; Eosinophils # 0.3 10^3/uL (0.0-0.8); Eosinophils % 3.8 %; Hematocrit 38.2 % (36-47); Lymphocytes # 1.6 10^3/uL (0.8-4.8); Lymphocytes % 22.2 %; Mean Corpuscular HGB Conc 35.6 g/dL (30-55); Mean Corpuscular Hemoglobin 32.5 pg (27-33); Mean Corpuscular Volume 91.4 fl (85-98); Mean Platelet Volume 8.7 fL (7.4-10.4); Monocytes # 0.8 10^3/uL (0.2-0.9); Monocytes % 10.4 %; Neutrophils # 4.59 10^3/uL (1.8-7.7); Neutrophils % 62.6 %; Nucleated Red Blood Cells % 0 %; Platelet Count 253 10^3/cmm (157-399); Red Blood Count 4.18 10^6/uL (3.85-5.65); Red Cell Distribution Width 13.2 % (12.1-15.1); White Blood Count 7.34 10^3/uL (3.29-11.43)
[2024-02-11 20:23] LABS: Bilirubin Urine Negative (Negative); Blood Urine Negative (Negative); Glucose Urine UA 2+ (Normal); Ketones Urine Trace (Negative); Leukocyte Esterase Urine 2+ (Negative); Nitrate Urine Negative (Negative); Protein Urine 1+ (Negative); Specific Gravity, Urine 1.022 (1.005-1.030); Urine Appearance Cloudy (CLEAR); Urine Color Dark Yellow (Yellow)
[2024-02-11 20:25] LABS: Add Urine Microscopic? YES; Bacteria Urine Trace /hpf; Squamous Epithelial Cell Urine 0-5 /hpf (0-5); WBC Urine 21-50 /hpf (0-5)
[2024-02-11 20:41] LABS: Troponin(5th) Baseline < 6 ng/L (0-10)
[2024-02-11 20:42] LABS: Alanine Aminotransferase 22 U/L (0-33); Albumin Level 4.5 g/dL (3.5-5.2); Alkaline Phosphatase 109 U/L (35-105); Anion Gap 13.7 (5-19); Aspartate Amino Transferase 10 U/L (0-32); Blood Urea Nitrogen 10 mg/dL (8-23); Calcium 9.5 mg/dL (8.5-10.5); Carbon Dioxide 29 mmol/L (22-29); Chloride 96 mmol/L (98-107); Creatinine Clr Calc Pharmacy 86.0457; Globulin 1.5 g/dL (1.3-4.6); Glomerular Filtration Rate 123.8 mL/min (90-130); Glucose 253 mg/dL (65-115); Osmolality Calculated 288 mOsm/kg (285-295); Potassium 3.7 mmol/L (3.5-5.1); Sodium 135 mmol/L (136-145); Total Bilirubin 0.3 mg/dL (0.15-1.2)
[2024-02-11 20:43] LABS: Add Urine Culture? Yes; UA Slide Review UA Slide Review Perf
--- NOTE | 2024-02-11 21:40 | PC.NURSE ---
this nurse called marifer castro, marifer castro unable to berry picker pt. registration notified to set up a medicaid ride.
[2024-02-11 22:53] VITALS: BP 149/73; PULSE 74; O2SAT 94
== END 2024-02-11 22:54 | disposition home or self-care (01) ==
PROVIDERS: Emergency Provider Physician Assistant; PCP Family Medicine
DX: S00.531A Contusion of lip, initial encounter (principal); W19.XXXA Unspecified fall, initial encounter
CPT/HCPCS: 36415; 70450; 72125; 80053; 81001; 84484; 85025; 87086; 93005; 99284

== ENCOUNTER 2024-04-17 15:12 | Emergency (ER) | payer MEDICARE, SELFPAY ==
[2024-04-17 15:14] VITALS: BP 212/94; PULSE 78; RESP 17; TEMP 37.2; O2SAT 93
--- NOTE | 2024-04-17 15:31 | XRR_ITS ---
PROCEDURE INFORMATION: Exam: XR Chest Exam date and time: 04/17/2024 3:59 PM Age: 63 years old Clinical indication: Dyspnea; Additional info: Elevated blood pressure TECHNIQUE: Imaging protocol: Radiologic exam of the chest. Views: 1 view. COMPARISON: CR XR chest 1V portable [id number] 08/03/2023 8:24 PM FINDINGS: Lungs: Unremarkable. No consolidation. Pleural spaces: Unremarkable. No pleural effusion. No pneumothorax. Heart/Mediastinum: Unremarkable. No cardiomegaly. Bones/joints: Unremarkable. XR/XR chest 1V portable [id number] IMPRESSION: No acute findings.
--- NOTE | 2024-04-17 15:31 | ECG_ITS ---
[facility] Test Date: 2024-04-17 Pat Name: Milagros Wells Department: Room: Gender: Female Director Outcomes: : 1960 Requested By: Jad Mccain Order Number: [id number] Reading MD: SWAPNA ONTIVEROS Measurements Intervals [place] Rate: 70 P: 28 ME: 218 QRS: 31 QRSD: 91 T: 59 QT: 375 QTc: 406 Interpretive Statements SINUS RHYTHM WITH FIRST DEGREE AV BLOCK INCOMPLETE RIGHT BUNDLE BRANCH BLOCK [90+ ms QRS DURATION, TERMINAL R IN V1/V2, 40+ ms S IN I/aVL/V4/V5/V6] Compared to ECG 02/11/2024 19:49:06 First degree AV block now present Incomplete right bundle-branch block now present T-wave abnormality no longer present Electronically Signed On 04-17-2024 18:38:30 SALES REPRESENTATIVE MARINE SUPPLIES by SWAPNA ONTIVEROS [id number]
[2024-04-17] MEDS: hyDRALAzine 20 mg/mL INJ 1 mL 10 MG IVP ×2 (15:40→16:58)
[2024-04-17] MEDS: labetalol 5 mg/mL SDV 20mL 10 MG IVP (15:40)
--- NOTE | 2024-04-17 15:51 | ED_ITS ---
HPI - General Adult 2 General: Chief complaint: General Medical Stated complaint: Hypertension Time Seen by Provider: 04/17/24 15:30 History of Present Illness: 63-year-old female who presents to the e mergency room complaining of elevated blood pressure. She had a blood pressure at home of 220/180. She has been lightheaded and dizzy. She has not had any chest pain or shortness of breath. No difficulty speech swallowing gait or balance. Reviewing her medicine list she is on carvedilol, lisinopril and hydrochlorothiazide Associated symptoms: Deny chest pain, dyspnea or rash Related Data Previous Rx's Medication Instructions Recorded lansoprazole 30 mg capsule,delayed 30 mg PO DAILY #30 caps 08/03/23 release (Prevacid) amlodipine 10 mg tablet 10 mg PO DAILY #30 tabs 04/17/24 Allergies Allergy/AdvReac Type Severity Reaction Status Date / Time No Known Allergies Allergy Verified 02/11/24 19:41 Review of Systems 2 Const: Denies: fever(s) or chills Card: Denies: chest pain Resp: Denies: dyspnea GI: Denies: abdominal pain : Denies: dysuria, urinary frequency or urinary urgency Musc: Denies: neck pain or back pain Skin/Breast: Denies: rash PFSH ED 2 PFSH: Medical History Mental handicap Family History Denies family history of Colon cancer Ovarian cancer Diabetes Heart disease Hypercholesteremia Breast cancer Hypertension Uterine cancer Thyroid disease Stroke Physical Exam 2 Const: GENERAL APPEARANCE: cooperative ORIENTATION/CONSCIOUSNESS: Yes awake HENMT: COMMON NORMALS: normocephalic, atraumatic and hearing grossly normal bilaterally HEAD & SCALP: normocephalic and atraumatic Resp: COMMON NORMALS: normal respiratory effort, No retractions, No use of accessory muscles and clear to auscultation bilaterally AUSCULTATION: clear to auscultation bilaterally Cardio: COMMON NORMALS: regular rate, regular rhythm and No murmurs present (Cardio) RATE: regular rate RHYTHM: regular rhythm GI: COMMON NORMALS: Soft to palpation and No hepatosplenomegaly present A USCULTATION: Yes normoactive bowel sounds PALPATION: Yes Soft to palpation, No Tenderness to palpation present (GI), No Guarding due to palpation present (GI) and Yes No hepatosplenomegaly present Extremity: COMMON NORMALS: normal to inspection, capillary refill normal, no clubbing, cyanosis or edema, no calf tenderness and no pedal edema Skin: COMMON NORMALS: no rashes or lesions noted GENERAL SKIN EXAM: no rashes or lesions noted Course 2 Vital Signs: Vital signs: Vital Signs Temperature 98.9 F 04/17/24 15:14 Pulse Rate 78 04/17/24 18:34 Respiratory Rate 17 04/17/24 15:14 Blood Pressure 172/85 04/17/24 18:34 Pulse Oximetry 94 04/17/24 18:34 Oxygen Delivery Me thod Room Air 04/17/24 17:17 MDM - General Adult Medical Decision Making No focal neurologic deficits time of exam blood pressure initially quite elevated responded to hydralazine labetalol will discharge home add amlodipine continue other medications as previously prescribed. Follow-up with primary care Medical Records I reviewed the patient's medical records. Lab Data I reviewed the patient's lab results. 04/17/24 14:55 04/17/24 14:55 Radiology Impressions Chest X-Ray 04/17/24 15:31 IMPRESSION: No acute findings. Laboratory Results WBC 5.45 10^3/uL (3.29-11.43) 04/17/24 14:55 RBC 4.33 10^6/uL (3.85-5.65) 04/17/24 14:55 Hgb 13.40 g/dL (11.27-16.99) 04/17/24 14:55 Hct 38.9 % (36-47) 04/17/24 14:55 MCV 89.8 fl (85-98) 04/17/24 14:55 MCH 30.9 pg (27-33) 04/17/24 14:55 MCHC 34.4 g/dL (30-55) 04/17/24 14:55 RDW 12.6 % (12.1-15.1) 04/17/24 14:55 Plt Count 237 10^3/cmm (157-399) 04/17/24 14:55 MPV 9.0 fL (7.4-10.4) 04/17/24 14:55 Neut % (Auto) 54.7 % 04/17/24 14:55 Lymph % (Auto) 26.8 % 04/17/24 14:55 [place] % (Auto) 11.4 % 04/17/24 14:55 Eos % (Auto) 5.3 % 04/17/24 14:55 Baso % (Auto) 0.9 % 04/17/24 14:55 Neut # (Auto) 2.98 10^3/uL (1.8-7.7) 04/17/24 14:55 Lymph # (Auto) 1.5 10^3/uL (0.8-4.8) 04/17/24 14:55 [place] # (Auto) 0.6 10^3/uL (0.2-0.9) 04/17/24 14:55 Eos # (Auto) 0.3 10^3/uL (0.0-0.8) 04/17/24 14:55 Baso # (Auto) 0.1 10^3/uL (0.0-0.1) 04/17/24 14:55 Nucleated RBC % (auto) 0 % 04/17/24 14:55 Nucleated RBCs # 0.0 /100WBC 04/17/24 14:55 Sodium 133 mmol/L (136-145) L 04/17/24 14:55 Potassium 3.6 mmol/L (3.5-5.1) 04/17/24 14:55 Chloride 90 mmol/L (98-107) L 04/17/24 14:55 Carbon Dioxide 27 mmol/L (22-29) 04/17/24 14:55 Anion Gap 19.6 (5-19) H 04/17/24 14:55 BUN 9 mg/dL (8-23) 04/17/24 14:55 Creatinine 0.4 mg/dL (0.5-0.9) L 04/17/24 14:55 GFR Calculation 160.2 mL/min (90-130) H 04/17/24 14:55 Glucose 192 mg/dL (65-115) H 04/17/24 14:55 Calculated Osmolality 280 mOsm/kg (285-295) L 04/17/24 14:55 Calcium 9.3 mg/dL (8.5-10.5) 04/17/24 14:55 Total Bilirubin 0.4 mg/dL (0.15-1.2) 04/17/24 14:55 AST 13 U/L (0-32) 04/17/24 14:55 ALT 13 U/L (0-33) 04/17/24 14:55 Alkaline Phosphatase 97 U/L (35-105) 04/17/24 14:55 Total Protein 6.8 g/dL (6.6-8.7) 04/17/24 14:55 Albumin 4.3 g/dL (3.5-5.2) 04/17/24 14:55 Globulin 2.5 g/dL (1.3-4.6) 04/17/24 14:55 Urine Color Yellow (Yellow) 04/17/24 16:47 Urine Appearance Clear (CLEAR) 04/17/24 16:47 Urine pH 6.5 (5-7) 04/17/24 16:47 Ur Specific [place] 1.008 (1.005-1.030) 04/17/24 16:47 Urine Protein Negative (Negative) 04/17/24 16:47 Urine Glucose (UA) Negative (Normal) 04/17/24 16:47 Urine Ketones Negative (Negative) 04/17/24 16:47 Urine Blood Negative (Negative) 04/17/24 16:47 Urine Nitrate Negative (Negative) 04/17/24 16:47 Urine Bilirubin Negative (Negative) 04/17/24 16:47 Urine Urobilinogen 0.2 mg/dL (Negative) 04/17/24 16:47 Ur Leukocyte Esterase Negative (Negative) 04/17/24 16:47 Urine RBC 0-2 /hpf (0-2) 04/17/24 16:47 Urine WBC 0-5 /hpf (0-5) 04/17/24 16:47 Ur Squamous Epith Cells 0-5 /hpf (0-5) 04/17/24 16:47 Amorphous Sediment Not Reportable 04/17/24 16:47 Urine Bacteria None seen /hpf (NONE) 04/17/24 16:47 Hyaline Casts 0-4 /lpf H 04/17/24 16:47 All radiology interpretation(s) finalized by discharge Discharge Plan Discharge Patient Disposition: Home Clinical Impression: HTN (hypertension) Condition: Stable Prescriptions: New amlodipine 10 mg tablet 10 mg PO DAILY Qty: 30 0RF No Action Prevacid 30 mg capsule,delayed release(DR/EC) 30 mg PO DAILY Qty: 30 0RF Discharge Orders: Discharge ED (Routine); Ordered 04/17/24 Ordered By: Jad Del Toro Referrals: Vasiliy Santiago Jr, MD [Primary Care Provider] - Discharge Diet: Usual diet Discharge Activity: Resume usual activity Patient Instructions: Opioid Safety, Pain Management Activity Restrictions/Additional Instructions: Thank you for choosing [facility] for your healthcare needs today. It is very important that you follow up as instructed or that you return to the Emergency Department should you have concerns or if your condition changes or worsens in any way. You were seen in the emergency room for elevated blood pressure. Blood pressure did improve with medications continue to take your carvedilol and hydrochlorothiazide we also recommend that you add amlodipine 10 mg once daily follow-up with your primary care doctor within the next week to reevaluate your blood pressure Coding Level of Care Code ED Child Care Team Lead for Nicole Coronel
[2024-04-17 15:58] LABS: Basophils # 0.1 10^3/uL (0.0-0.1); Basophils % 0.9 %; Eosinophils # 0.3 10^3/uL (0.0-0.8); Eosinophils % 5.3 %; Hematocrit 38.9 % (36-47); Lymphocytes # 1.5 10^3/uL (0.8-4.8); Lymphocytes % 26.8 %; Mean Corpuscular HGB Conc 34.4 g/dL (30-55); Mean Corpuscular Hemoglobin 30.9 pg (27-33); Mean Corpuscular Volume 89.8 fl (85-98); Monocytes # 0.6 10^3/uL (0.2-0.9); Monocytes % 11.4 %; Neutrophils # 2.98 10^3/uL (1.8-7.7); Neutrophils % 54.7 %; Nucleated Red Blood Cells % 0 %; Platelet Count 237 10^3/cmm (157-399); Red Blood Count 4.33 10^6/uL (3.85-5.65); Red Cell Distribution Width 12.6 % (12.1-15.1); White Blood Count 5.45 10^3/uL (3.29-11.43)
[2024-04-17 16:22] LABS: Alanine Aminotransferase 13 U/L (0-33); Albumin Level 4.3 g/dL (3.5-5.2); Alkaline Phosphatase 97 U/L (35-105); Anion Gap 19.6 (5-19); Aspartate Amino Transferase 13 U/L (0-32); Blood Urea Nitrogen 9 mg/dL (8-23); Calcium 9.3 mg/dL (8.5-10.5); Carbon Dioxide 27 mmol/L (22-29); Chloride 90 mmol/L (98-107); Globulin 2.5 g/dL (1.3-4.6); Glomerular Filtration Rate 160.2 mL/min (90-130); Glucose 192 mg/dL (65-115); Osmolality Calculated 280 mOsm/kg (285-295); Potassium 3.6 mmol/L (3.5-5.1); Sodium 133 mmol/L (136-145); Total Bilirubin 0.4 mg/dL (0.15-1.2); Total Protein 6.8 g/dL (6.6-8.7)
[2024-04-17 16:55] LABS: Bilirubin Urine Negative (Negative); Blood Urine Negative (Negative); Glucose Urine UA Negative (Normal); Ketones Urine Negative (Negative); Leukocyte Esterase Urine Negative (Negative); Nitrate Urine Negative (Negative); Protein Urine Negative (Negative); Specific Gravity, Urine 1.008 (1.005-1.030); Urine Appearance Clear (CLEAR); Urine Color Yellow (Yellow); Urobilinogen Urine 0.2 mg/dL (Negative); pH Urine 6.5 (5-7)
[2024-04-17 16:57] LABS: Add Urine Microscopic? YES; Bacteria Urine None Seen /hpf; Hyaline Casts Urine 0-4 /lpf; RBC Urine 0-2 /hpf (0-2); Squamous Epithelial Cell Urine 0-5 /hpf (0-5); WBC Urine 0-5 /hpf (0-5)
[2024-04-17 17:09] VITALS: BP 183/91; PULSE 79; O2SAT 94
[2024-04-17 17:17] VITALS: BP 177/86; PULSE 80; O2SAT 94
[2024-04-17] MEDS: amlodipine 10 mg Tablet PO (18:06)
[2024-04-17] MEDS: enalaprilat 2.5 mg/2 mL SDV 1.25 MG IVP (18:08)
[2024-04-17 18:34] VITALS: BP 172/85; PULSE 78; O2SAT 94
== END 2024-04-17 18:38 | disposition home or self-care (01) ==
PROVIDERS: Emergency Provider Family Medicine; PCP Family Medicine
DX: I10 Essential (primary) hypertension (principal)
CPT/HCPCS: 71045; 80053; 81001; 85025; 93005; 96374; 96375; 96376; 99285; J0360; J3490

== ENCOUNTER 2024-09-22 08:28 | Outpatient (CLI) | payer MEDICARE, MEDICAID, SELFPAY ==
--- NOTE | 2024-09-22 08:32 | MM_ITS ---
WS: [id number] BILATERAL SCREENING DIGITAL TOMOSYNTHESIS MAMMOGRAM WITH CAD HISTORY: SCREENING COMPARISON: 09/19/2023, 08/26/2022 Bilateral CC and MLO views with tomosynthesis and synthetic mammography submitted. Computer aided detection analyzed. Breast composition: There are scattered areas of fibroglandular density. No suspicious masses, microcalcifications or architectural distortion. Benign calcifications within each breast. MM/MM scr BI tomosynthesis [id number] IMPRESSION: BI-RADS: 2 - Benign. FOLLOW UP: 1 Year Follow-up
== END 2024-09-22 08:29 | disposition home or self-care (01) ==
LOC: RAD 08:29
PROVIDERS: PCP Family Medicine; Visit Provider Internal Medicine
DX: Z12.31 Encounter for screening mammogram for malignant neoplasm of breast (principal)
CPT/HCPCS: 77063; 77067